=== PATIENT | female | born 1975 | race African-American/Black ===

== ENCOUNTER 2016-10-12 20:48 | Emergency (ER) | payer MEDICAID, OTHER ==
--- NOTE | 2016-10-13 00:53 | ER Document Report ---
ED General - General Chief Complaint: Chest Pain Stated Complaint: CHEST PAIN Notes: Patient is a 41-year-old female who presents with complaints of any pain that goes up into her chest whenever she eats. Says it's been ongoing for several months. She was taking Zantac. Is not helping anymore and therefore has come to ER. Patient says that she is a last neck. Vaccinations. She says that the pain started again on her way to ER. When I asked her what she ate on the way she said that she ate a perez cheeseburger and fries from [employer]. She denies fevers. No vomiting. She says that sometimes she feels as if food does get stuck in her softest but then she's able to wash down liquids. No blood in her stool. No blood in emesis. No other complaints at this time. She takes no other medications other than Zantac and iron. TRAVEL OUTSIDE OF THE [place] IN LAST 30 DAYS: No - Related Data Allergies/Adverse Reactions: No Known Allergies Allergy (Verified 04/14/15 15:16) Past Medical History - Social History Smoking Status: Never Smoker Frequency of alcohol use: None Drug Abuse: None Family History: Reviewed & Not Pertinent Patient has suicidal ideation: No Patient has homicidal ideation: No - Past Medical History Cardiac Medical History: Denies: Hx Coronary Artery Disease, Hx Heart Attack, Hx Hypertension Pulmonary Medical History: Denies: Hx Asthma, Hx Bronchitis, Hx COPD, Hx Pneumonia Neurological Medical History: Denies: Hx Cerebrovascular Accident, Hx Seizures Renal/ Medical History: Denies: Hx Peritoneal Dialysis Musculoskeltal Medical History: Denies Hx Arthritis Psychiatric Medical History: Reports: Hx Anxiety, Hx Bipolar Disorder Past Surgical History: Reports: Hx Abdominal Surgery - hernia repair, Hx Oral Surgery - wisdom, Hx Tubal Ligation - Immunizations Hx Diphtheria, Pertussis, Tetanus Vaccination: No Review of Systems - Review of Systems Notes: My Normal Review Basic REVIEW OF SYSTEMS: CONSTITUTIONAL : Denies fever, chills, or sweats. Denies recent illness. EENT: Denies eye, ear, throat, or mouth pain or symptoms. Denies nasal or sinus congestion. CARDIOVASCULAR: Has chest pain. RESPIRATORY: Denies cough, cold, or chest congestion. Denies shortness of breath, difficulty breathing, or wheezing. GASTROINTESTINAL: Epigastric abdominal pain. Denies nausea, vomiting, or diarrhea. Denies constipation. Last BM: GENITOURINARY: Denies difficulty urinating, painful urination, burning, frequency, or blood in urine. MUSCULOSKELETAL: Denies neck or back pain or joint pain or swelling. SKIN: Denies rash or skin lesions. NEUROLOGICAL: Denies altered mental status or loss of consciousness. Denies headache. Denies weakness or paralysis or loss of use of either side. Denies problems with gait or speech. Denies sensory or motor loss. ALL OTHER SYSTEMS REVIEWED AND NEGATIVE. Physical Exam - Vital signs Vitals: Temp Pulse Resp BP Pulse Ox 98.8 F 82 18 126/77 H 98 10/12/16 21:19 10/12/16 21:19 10/12/16 21:19 10/12/16 21:19 10/12/16 21:19 - Notes Notes: General Appearance: Well nourished, alert, cooperative, no acute distress, no obvious discomfort. Well-appearing. Vitals: reviewed, See vital signs table. Head: no swelling or tenderness to the head Eyes: PERRL, EOMI, Conjuctiva clear Mouth: No decreasd moisture Neck: Supple, no neck tenderness, No thyromegaly Lungs: No wheezing, No rales, No rhonci, No accessory muscle use, good air exchange bilaterally. Heart: Normal rate, Regular rythm, No murmur, no rub Abdomen: Normal BS, soft, No rigidity, mild epigastric abdominal tenderness to palpation, No guarding, no rebound, no abdominal masses, no organomegaly Extremities: strength 5/5 in all extremities, good pulses in all extremities, no swelling or tenderness in the extremities, no edema. Skin: warm, dry, appropriate color, no rash Neuro: speech clear, oriented x 3, normal affect, responds appropriately to questions. Course - Vital Signs Vital signs: Temp Pulse Resp BP Pulse Ox 98.8 F 82 18 126/77 H 98 10/12/16 21:19 10/12/16 21:19 10/12/16 21:19 10/12/16 21:19 10/12/16 21:19 - Laboratory Result Diagrams: 10/13/16 01:12 10/13/16 01:12 Laboratory results interpreted by me: 10/13/16 10/13/16 01:12 01:12 Hgb 11.0 L Hct 33.7 L MCH 26.2 L RDW 15.6 H Chloride 108 H Carbon Dioxide 21 L Glucose 113 H - EKG Interpretation by Me Additional EKG results interpreted by me: 10/13/16 00:53 EKG is reviewed and interpreted by me. EKG shows normal sinus rhythm with rate of [address] segment elevation or depression. No ischemic T wave inversions. RI interval, QRS duration, QTC also are within normal range. Old EKG for comparison is from 03/11/2015. - Transfer of Care Notes: 10/13/16 02:58 Patient's history and symptoms are consistent with what appears be acid reflux and gastritis. She has been having some difficulty swallowing at times which suggest he may have a stricture. I did explain to her that she really needs to have an upper GI endoscopy performed. Her labs or evaluations unremarkable. Her EKG and cardiac enzymes are negative. I do not think the pain she has going into her chest is cardiac related. I informed her she must return to ER immediately if she has worsening pain or feels unwell. I did explain to her that her current diet is only making her symptoms worse. I strongly encourage her to eat a very bland diet and to avoid eating fried foods, fast foods, fatty foods, or acidic foods. Patient shows understanding of this and will be discharged home. Patient encouraged to return to ER immediately if she has worsening pain, any blood in her stool, vomiting, fevers, or food gets stuck in her esophagus and will not pass. Dictation of this chart was performed using voice recognition software; therefore, there may be some unintended grammatical errors. Discharge - Discharge Clinical Impression: Chest pain Qualifiers: Chest pain type: unspecified Qualified Code(s): R07.9 - Chest pain, unspecified Abdominal pain Qualifiers: Abdominal location: epigastric Qualified Code(s): R10.13 - Epigastric pain Additional Instructions: I provided information and office numbers to our 2 local gastrointestinal physicians. They are Dr. Locke and Dr. Moy. Please call to get an appointment as you probably will need an upper GI endoscopy to evaluate your stomach and esophagus. This is important because of your history of difficulty swallowing and pain after eating. please avoid fatty foods, fried foods, and acidic foods. please eat a very bland diet. Please take Zantac as well as the medication I am prescribing you. Please return to the ER immediately if you have worsening pain, blood in your stool, fevers, get food stuck in your esophagus, or feel unwell. Prescriptions: Sucralfate [Carafate 1 gm Tablet] 1 gm PO ACHS #120 tablet Referrals: MACKENZIE LOCKE MD [ACTIVE STAFF] - Follow up in 3-5 days LIANNE MOY MD [ACTIVE STAFF] - Follow up in 3-5 days MICHAEL PÉREZ DO [Primary Care Provider] - Follow up in 3-5 days
[2016-10-13] MEDS ORDERED: METOCLOPRAMIDE HCL ORAL SOLN 10 MG/10 ML UDCUP PO ONE (01:04)
[2016-10-13] MEDS ORDERED: LIDOCAINE 2% VISCOUS SOLN 20 ML UDCUP PO ONE (01:04)
[2016-10-13] MEDS ORDERED: MAG HYDROX/AL HYDROX/SIMETH SUSP 30 ML UDCUP PO ONE (01:04)
[2016-10-13 01:28] LABS: ABSOLUTE BASOPHILS # (AUTO) 0.1 10^3/uL (0.0-0.2); ABSOLUTE EOSINOPHILS # (AUTO) 0.2 10^3/uL (0.0-0.6); ABSOLUTE LYMPHOCYTES (AUTO) 2.5 10^3/uL (0.5-4.7); ABSOLUTE MONOCYTES (AUTO) 0.5 10^3/uL (0.1-1.4); ABSOLUTE NEUT (AUTO) 5.9 10^3/uL (1.7-8.2); BASOPHILS % (AUTO) 0.7 % (0-2); EOSINOPHILS % (AUTO) 1.9 % (0-6); HEMATOCRIT 33.7 % (36.0-47.0); HGB HCT DIFFERENCE -0.7; LYMPHOCYTES % (AUTO) 27.4 % (13-45); MEAN CORPUSCULAR HEMOGLOBIN 26.2 pg (27.0-33.4); MEAN CORPUSCULAR HGB CONC 32.5 g/dL (32.0-36.0); MEAN CORPUSCULAR VOLUME 81 fl (80-97); MONOCYTES % (AUTO) 5.1 % (3-13); RED BLOOD COUNT 4.19 10^6/uL (3.72-5.28); RED CELL DISTRIBUTION WIDTH 15.6 % (11.5-14.0); SEGMENTED NEUTROPHILS % (AUTO) 64.9 % (42-78); WHITE BLOOD COUNT 9.1 10^3/uL (4.0-10.5)
[2016-10-13 01:42] LABS: ALANINE AMINOTRANSFERASE 26 U/L (9-52); ALKALINE PHOSPHATASE 81 U/L (38-126); ANION GAP 13 (5-19); ASPARTATE AMINO TRANSFERASE 22 U/L (14-36); BILIRUBIN,DIRECT 0.2 mg/dL (0.0-0.4); BILIRUBIN,TOTAL 0.7 mg/dL (0.2-1.3); BLOOD UREA NITROGEN 13 mg/dL (7-20); CALCIUM 9.5 mg/dL (8.4-10.2); CARBON DIOXIDE 21 mmol/L (22-30); CHLORIDE 108 mmol/L (98-107); CREATININE RESULT 0.81 mg/dL (0.52-1.25); GLUCOSE 113 mg/dL (75-110); LIPASE 105.6 U/L (23-300); SODIUM 142.4 mmol/L (137-145); TOTAL PROTEIN 7.3 g/dL (6.3-8.2)
[2016-10-13 01:46] LABS: APPEARANCE,URINE CLEAR; BILIRUBIN,URINE NEGATIVE (NEGATIVE); GLUCOSE, URINE NEGATIVE (NEGATIVE); KETONES,URINE NEGATIVE (NEGATIVE); LEUKOCYTE ESTERASE,URINE NEGATIVE (NEGATIVE); NITRITE,URINE NEGATIVE (NEGATIVE); PROTEIN,URINE NEGATIVE (NEGATIVE); URINE SPECIFIC GRAVITY 1.012; UROBILINOGEN,URINE NEGATIVE mg/dL (<2.0)
[2016-10-13 03:46] VITALS: BP 108/73
--- NOTE | 2016-10-13 09:47 | EKG REPORT ---
SEVERITY:- NORMAL ECG - SINUS RHYTHM : Confirmed by: Ben Brown 13-Oct-2016 09:46:49
== END 2016-10-13 02:58 | disposition home or self-care (01) ==
LOC: ER 10-13 00:46
DX: R07.9 Chest pain, unspecified (principal); R10.13 Epigastric pain; Z79.899 Other long term (current) drug therapy
CPT/HCPCS: 93005; 99285; 36415; 83690; 85025; 80053; 81001; 84484; 71020; 93010; J3490

== ENCOUNTER 2016-10-24 10:16 | Day surgery (SDC) | payer OTHER ==
[~2016-10-24 10:16] MED LIST: DIPHENHYDRAMINE HCL 50 MG/ML VIAL ONE; EPINEPHRINE INJ 1 MG/10 ML DISP.SYRIN ONE; FLUMAZENIL INJ 0.5 MG/5 ML VIAL IV ONE; GLUCAGON,HUMAN RECOMB 1 MG INJ ONE; NALOXONE HCL INJ/PF 0.4 MG/1 ML SDV ONE; ONDANSETRON HCL INJ/PF 4 MG/2 ML SDV ONE
[2016-10-24] MEDS: MIDAZOLAM 2 MG/2 ML INJ ONE ×2 (10:55→10:59)
[2016-10-24] MEDS: FENTANYL CITRATE INJ/PF 100 MCG/2 ML AMPUL ONE ×2 (10:57→11:01)
--- NOTE | 2016-10-24 11:09 | Operative Report ---
Operative Report DATE OF SURGERY: 10/24/16 Operative Report: The risks benefits and alternatives of the procedure explained to the patient in detail and informed consent is obtained that GIF Olympus video scope was inserted into the patient's mouth and hypopharynx the esophagus is identified intubated and insufflated the scope was then advanced through the esophagus stomach and duodenum retroflexion maneuver is done the esophagus stomach and first and second portions of the duodenum examined PREOPERATIVE DIAGNOSIS: Noncardiac chest pain. Dysphagia. Gastroesophageal reflux disease POSTOPERATIVE DIAGNOSIS: Hiatal hernia. Schatzki's ring status post biopsy. Esophageal nodule status post biopsy. Gastritis status post biopsy OPERATION: EGD with biopsy SURGEON: MACKENZIE AGUILAR ANESTHESIA: Moderate Sedation - 4 mg of Versed, 100 g of fentanyl. Conscious sedation monitoring time 30 minutes. TISSUE REMOVED OR ALTERED: Specimens as described above. COMPLICATIONS: None. ESTIMATED BLOOD LOSS: none. INTRAOPERATIVE FINDINGS: Findings as noted above. PROCEDURE: Patient tolerated the procedure well. No immediate postprocedure complications are noted. Patient discharged in good condition. Discharge date 10/24/2016. Discharge diet: Regular. Discharge activity: Regular. 2-3 week follow-up to discuss findings. We'll await on biopsies. Patient is instructed to call the office or proceed to the emergency room should there be any further problems or questions.
[2016-10-24 12:21] VITALS: BP 111/70
== END 2016-10-24 12:14 | disposition home or self-care (01) ==
LOC: END 10:16
PROVIDERS: ATTEND Internal Medicine Gastroenterology
PROC: 0DB48ZX Excision of Esophagogastric Junction, Via Natural or Artificial Opening Endoscopic, Diagnostic (ICD-10-PCS; 2016-10-24)
PROC: 0DB68ZX Excision of Stomach, Via Natural or Artificial Opening Endoscopic, Diagnostic (ICD-10-PCS; principal; 2016-10-24 11:00)
DX: K29.50 Unspecified chronic gastritis without bleeding (principal); K21.0 Gastro-esophageal reflux disease with esophagitis; K44.9 Diaphragmatic hernia without obstruction or gangrene; K22.2 Esophageal obstruction; R07.89 Other chest pain; E78.5 Hyperlipidemia, unspecified; D64.9 Anemia, unspecified; F17.210 Nicotine dependence, cigarettes, uncomplicated; E66.9 Obesity, unspecified; Z68.33 Body mass index [BMI] 33.0-33.9, adult; Z79.899 Other long term (current) drug therapy; E55.9 Vitamin D deficiency, unspecified
CPT/HCPCS: 43239; 88305 ×2; J2250; J0171; J3010; J1200; J1610; J2310; J2405; J3490

== ENCOUNTER 2017-06-12 04:52 | Emergency (ER) | payer SELFPAY ==
--- NOTE | 2017-06-12 05:10 | ER Document Report ---
ED General - General Chief Complaint: Vaginal Bleeding Stated Complaint: VAGINAL BLEEDING Notes: Patient is a 41-year-old female presents with complaint of passing large clot during her menstrual cycle. Menstrual cycle started the 26. He says no more bleeding than what she is used to. She denies any recent sexual activity. She says it has been about a year. She has no concerns for sexual transmitted diseases or due to lack of sexual activity. She does have history of fibroids. She says she had an ultrasound many years ago which showed some fibroid tumors. She says she just wants to get checked because this is atypical for her to pass clots that she did today. Patient says her bleeding has slowed down since passing the clot. No recent fevers or infections. TRAVEL OUTSIDE OF THE [place] IN LAST 30 DAYS: No - Related Data Allergies/Adverse Reactions: No Known Allergies Allergy (Verified 10/24/16 10:36) Past Medical History - Social History Smoking Status: Unknown if Ever Smoked Frequency of alcohol use: None Drug Abuse: None Family History: Reviewed & Not Pertinent - Past Medical History Cardiac Medical History: Denies: Hx Coronary Artery Disease, Hx Heart Attack, Hx Hypertension Pulmonary Medical History: Denies: Hx Asthma, Hx Bronchitis, Hx COPD, Hx Pneumonia Neurological Medical History: Denies: Hx Cerebrovascular Accident, Hx Seizures Renal/ Medical History: Denies: Hx Peritoneal Dialysis Musculoskeltal Medical History: Denies Hx Arthritis Psychiatric Medical History: Reports: Hx Anxiety, Hx Bipolar Disorder Past Surgical History: Reports: Hx Abdominal Surgery - hernia repair, Hx Oral Surgery - wisdom, Hx Tubal Ligation. Denies: Hx Hysterectomy - Immunizations Hx Diphtheria, Pertussis, Tetanus Vaccination: No Review of Systems - Review of Systems Notes: My Normal Review Basic REVIEW OF SYSTEMS: CONSTITUTIONAL : Denies fever, chills, or sweats. Denies recent illness. GASTROINTESTINAL: Denies abdominal pain. Denies nausea, vomiting, or diarrhea. FEMALE GENITOURINARY: Normal vaginal bleeding. MUSCULOSKELETAL: Denies neck or back pain or joint pain or swelling. SKIN: Denies rash or skin lesions. NEUROLOGICAL: Denies altered mental status or loss of consciousness. Denies headache. Denies weakness or paralysis or loss of use of either side. Denies problems with gait or speech. Denies sensory or motor loss. ALL OTHER SYSTEMS REVIEWED AND NEGATIVE. Physical Exam - Vital signs Vitals: Temp Pulse Resp BP Pulse Ox 98.3 F 72 18 132/69 H 100 06/12/17 04:56 06/12/17 04:56 06/12/17 04:56 06/12/17 04:56 06/12/17 04:56 - Notes Notes: General Appearance: Well nourished, alert, cooperative, no acute distress, no obvious discomfort. Well appearing. Vitals: reviewed, See vital signs table. Abdomen: Normal BS, soft, No rigidity, No abdominal tenderness, No guarding, no rebound, Pelvic exam: Normal external genitalia. Small amount of blood in vaginal vault. No clots in cervical office. No obvious lesions in examination of the cervix. Neuro: speech clear, oriented x 3, normal affect, responds appropriately to questions. Course - Re-evaluation Re-evalutation: 06/12/17 06:56 Patient's ultrasound shows fibroids consistent with her history. She also has a small cystic type structure in the endometrium which could be from a fibroid. I informed her that nonetheless at this has to be evaluated with repeat ultrasounds to make sure that he continues to be there that there is not further workup needs to be done for. I informed her that it is unlikely be cancerous but still so is better today on the side of caution follow-up with her hog killer to have this reevaluated to be 100% sure. Patient agrees with this plan. She is encouraged to return to the ER immediately if she has heavy bleeding, severe pain, or feels unwell. Patient will be discharged home. Dictation of this chart was performed using voice recognition software; therefore, there may be some unintended grammatical errors. - Vital Signs Vital signs: Temp Pulse Resp BP Pulse Ox 98.3 F 72 18 132/69 H 100 06/12/17 04:56 06/12/17 04:56 06/12/17 04:56 06/12/17 04:56 06/12/17 04:56 Discharge - Discharge Clinical Impression: Abnormal vaginal bleeding Fibroids Qualifiers: Uterine leiomyoma location: unspecified location Qualified Code(s): D25.9 - Leiomyoma of uterus, unspecified Condition: Good Disposition: HOME, SELF-CARE Additional Instructions: You have multiple fibroids in your uterus on the ultrasound. These can lead to abnormal periods and heavier than normal bleeding. You also have a custice area in the endometrium that needs to be reevaluated by the Plate And Weld Inspector. This is likely to be noncancerous, but still requires reevaluaiton because if it is changing or continues to be seen on repeat ultrasounds it may eventually need a biopsy. Please follow up with the hog killer for reevaluation and to have your pap smear performed. Please return to the ER immediately if you have heavy bleeding, lightheadedness, fevers, or if you feel unwell. Referrals: OSVALDO RAMSEY MD [ACTIVE STAFF] - Follow up in 3-5 days
[2017-06-12 07:14] VITALS: BP 126/79
--- NOTE | 2017-06-12 07:38 | RADIOLOGY REPORT (SQ) ---
EXAM DESCRIPTION: U/S NON OB PEL TV W/DOPPLER CLINICAL HISTORY: 41 years Female, abnormal vaginal bleeding COMPARISON: 11/30/2014 TECHNIQUE: Complete nonobstetrical pelvic ultrasound with transvaginal and transabdominal imaging. FINDINGS: Uterus measures 14.6 x 12.3 x 10.8 cm. Small amount of fluid in the endometrium. 1.2 cm hyperechoic focus in the endometrium. Endometrial thickness of 1.0 cm. The cervix measures 3.9 cm. Within the uterine myometrium there are multiple heterogeneous structures compatible with fibroids. There is a 7.7 cm intramural fibroid involving the rightward aspect of the uterus. There is a 5.6 cm intramural fibroid involving the anterior uterine myometrium. The ovaries are not visualized due to overlying enlarged uterus. IMPRESSION: 1. Enlarged multi fibroid uterus. The largest fibroid measures 7.7 cm. 2. 1.2 cm hyperechoic focus in the endometrium. This could represent a polyp versus submucosal fibroid versus endometrial hyperplasia. 3. Small amount of fluid in the endometrium. 4. The ovaries are not enlarged.
== END 2017-06-12 07:14 | disposition home or self-care (01) ==
LOC: ER 04:52
DX: D25.1 Intramural leiomyoma of uterus (principal); N93.9 Abnormal uterine and vaginal bleeding, unspecified
CPT/HCPCS: 76830; 93976; 99284

== ENCOUNTER 2017-09-06 05:05 | Emergency (ER) | payer SELFPAY ==
--- NOTE | 2017-09-06 07:03 | ER Document Report ---
HPI - HPI Pain Level: Denies Context: 42-year-old female with a history of bipolar tried to lay down to go to sleep at 4:00 after watching movies and felt anxious with rapid heartbeat which is the typical symptom for her. She is taking anxiety medication in the past but not on a regular basis. There was a situation that she texted her mentor about in there are family members who are being nosy and bothering her about it. She is not suicidal or homicidal. No recent illness. Feels like she has it under control and that she can drive herself home and she would be fine, although she wants a few anxiety pills. Associated Symptoms: None Exacerbated by: Denies Relieved by: Other - See above Similar symptoms previously: Yes Recently seen / treated by doctor: No - ROS ROS below otherwise negative: Yes Systems Reviewed and Negative: Yes All other systems reviewed and negative - REPRODUCTIVE Reproductive: DENIES: : Past Medical History - General Information source: Patient - Social History Smoking Status: Never Smoker Chew tobacco use (# tins/day): No Frequency of alcohol use: None Drug Abuse: None Lives with: Alone Family History: Reviewed & Not Pertinent Patient has suicidal ideation: No Patient has homicidal ideation: No Renal/ Medical History: Denies: Hx Peritoneal Dialysis Psychiatric Medical History: Reports: Hx Anxiety, Hx Bipolar Disorder Past Surgical History: Reports: Hx Abdominal Surgery - hernia repair, Hx Oral Surgery - wisdom, Hx Tubal Ligation. Denies: Hx Hysterectomy - Immunizations Hx Diphtheria, Pertussis, Tetanus Vaccination: No Vertical Provider Document - CONSTITUTIONAL Agree With Documented VS: Yes Exam Limitations: No Limitations - INFECTION CONTROL TRAVEL OUTSIDE OF THE [place] IN LAST 30 DAYS: No - HEENT HEENT: Normal ENT Exam, Normocephalic - NECK Neck: Supple, Thyroid Normal. negative: Lymphadenopathy-Left, Lymphadenopathy- Right - RESPIRATORY Respiratory: Breath Sounds Normal, No Respiratory Distress - CARDIOVASCULAR Cardiovascular: Regular Rate, Regular Rhythm - MUSCULOSKELETAL/EXTREMETIES Musculoskeletal/Extremeties: MAEW - NEURO Level of Consciousness: Awake, Alert, Appropriate - DERM Integumentary: Warm, Dry Course - Vital Signs Vital signs: Temp Pulse Resp BP Pulse Ox 97.9 F 69 22 H 124/95 H 98 09/06/17 05:18 09/06/17 05:18 09/06/17 05:18 09/06/17 05:18 09/06/17 05:18 Discharge - Discharge Clinical Impression: Anxiety Condition: Good Disposition: HOME, SELF-CARE Instructions: Anxiety ([facility]) Additional Instructions: see your neuropsych doctor for followup to er any concerns Prescriptions: Hydroxyzine HCl 50 mg PO QIDP PRN #30 tablet PRN Reason:
[2017-09-06 07:30] VITALS: BP 131/82
== END 2017-09-06 07:29 | disposition home or self-care (01) ==
LOC: ER 05:05
DX: F41.9 Anxiety disorder, unspecified (principal); Z98.51 Tubal ligation status
CPT/HCPCS: 99283

== ENCOUNTER 2017-10-07 17:18 | Emergency (ER) | payer BC ==
--- NOTE | 2017-10-07 18:40 | ER Document Report ---
ED General - General Chief Complaint: Neck Swelling Stated Complaint: SORE THROAT Time Seen by Provider: 10/07/17 18:40 Mode of Arrival: Ambulatory Information source: Patient TRAVEL OUTSIDE OF THE [place] IN LAST 30 DAYS: No - HPI Notes: 42-year-old female presents today with complaints of right neck swelling, difficulty opening mouth, pain with swallowing 1 week. Reports vaccinations are up-to-date. Pain is 8 out of 10, achy and sharp. Denies any new travel, medications or foods. Decreased eating but is drinking. Has not tried any over -the-counter medications. Denies fevers, chills, chest pain,palpitations, shortness of breath, dyspnea, nausea, vomiting, diarrhea, abdominal pain, hematuria,blurred vision, double vision, loss of vision, speech changes, LH, dizziness, syncope, headaches, wheezing, ST, URI, neck pain, weakness, bowel or bladder dysfunction, saddle anesthesia, numbness or tingling in bilateral upper or lower extremities equally, muscle paralysis, weakness in bilateral upper or lower extremities equally or rash. Denies IV drug use. - Related Data Allergies/Adverse Reactions: No Known Allergies Allergy (Verified 10/24/16 10:36) Past Medical History - General Information source: Patient - Social History Smoking Status: Unknown if Ever Smoked Family History: Reviewed & Not Pertinent - Past Medical History Cardiac Medical History: Denies: Hx Coronary Artery Disease, Hx Heart Attack, Hx Hypertension Pulmonary Medical History: Denies: Hx Asthma, Hx Bronchitis, Hx COPD, Hx Pneumonia Neurological Medical History: Denies: Hx Cerebrovascular Accident, Hx Seizures Renal/ Medical History: Denies: Hx Peritoneal Dialysis Musculoskeltal Medical History: Denies Hx Arthritis Psychiatric Medical History: Reports: Hx Anxiety, Hx Bipolar Disorder Past Surgical History: Reports: Hx Abdominal Surgery - hernia repair, Hx Oral Surgery - wisdom, Hx Tubal Ligation. Denies: Hx Hysterectomy - Immunizations Hx Diphtheria, Pertussis, Tetanus Vaccination: No Review of Systems - Review of Systems Constitutional: No symptoms reported EENT: See HPI Cardiovascular: No symptoms reported Respiratory: No symptoms reported Gastrointestinal: No symptoms reported Genitourinary: No symptoms reported Female Genitourinary: No symptoms reported Musculoskeletal: No symptoms reported Skin: No symptoms reported Hematologic/Lymphatic: No symptoms reported Neurological/Psychological: No symptoms reported Physical Exam - Vital signs Vitals: Temp Pulse Resp BP Pulse Ox 98.1 F 74 18 129/93 H 98 10/07/17 17:57 10/07/17 17:57 10/07/17 17:57 10/07/17 17:57 10/07/17 17:57 - Notes Notes: PHYSICAL EXAMINATION: GENERAL: Well-appearing, well-nourished and in no acute distress. HEAD: Atraumatic, normocephalic. EYES: Pupils equal round and reactive to light, extraocular movements intact, conjunctiva are normal. ENT: Nares patent, oropharynx clear without exudates. Moist mucous membranes. NECK: Normal range of motion, supple without lymphadenopathy. Noted lymphadenopathy with enlarged. Negative spurlings test. Social Sciences Research Scientist + 2 bilaterally and equally. Dtr +2~ bilaterally and equally in BUE. Perrla, full eomi. Face symmetrical. Full APROM no rashes observed. No lymphadenopathy. Full APROM with shoulders. TM intact bilaterally. No meningismus. LUNGS: Breath sounds clear to auscultation bilaterally and equal. No wheezes rales or rhonchi. HEART: Regular rate and rhythm without murmurs ABDOMEN: Soft, nontender, nondistended abdomen. No guarding, no rebound. No masses appreciated. Female : deferred Musculoskeletal: Normal range of motion, no pitting or edema. No cyanosis. NEUROLOGICAL: Cranial nerves grossly intact. Normal speech, normal gait. Normal sensory, motor exams PSYCH: Normal mood, normal affect. SKIN: Warm, Dry, normal turgor, no rashes or lesions noted. Course - Re-evaluation Re-evalutation: 10/07/17 19:09 on re evaluation, pt states that she is feeling better. CBC shows slight leukocytosis with neutrophils. CBC CMP lactate ct neck with soft tissue neck 10/07/17 22:16 10/07/17 22:25 - Vital Signs Vital signs: Temp Pulse Resp BP Pulse Ox 98.1 F 74 18 129/93 H 98 10/07/17 17:57 10/07/17 17:57 10/07/17 17:57 10/07/17 17:57 10/07/17 17:57 - Laboratory Result Diagrams: 10/07/17 20:00 10/07/17 20:32 Laboratory results interpreted by me: 10/07/17 20:00 WBC 14.6 H Hgb 10.6 L Hct 33.9 L MCV 73 L MCH 22.9 L MCHC 31.4 L RDW 28.4 H Absolute Neutrophils 10.7 H Discharge - Discharge Clinical Impression: Cervical lymphadenitis Condition: Good Disposition: HOME, SELF-CARE Instructions: Cervical Lymphadenitis ([facility]) Additional Instructions: Cervical Lymphadenitis You have an infection of the lymph glands in the neck. This is called lymphadenitis. Lymph glands guard against bacteria, but sometimes become infected themselves. The bacteria may come from a pimple or a scratch, from the gums, or from your tonsils. Sometimes it's not obvious where the germs came from. Occasionally a lymph gland infection will form an abscess that needs surgical drainage. The lump must be checked again if it keeps growing, or does not shrink down after treatment. We usually prescribe antibiotics for cervical lymphadenitis. Rest. Put warm packs on the area. Call the doctor or return if you develop increasing fever, worsening swelling, severe pain, or difficulty breathing or swallowing. Take antibiotics as directed, take prednisone as directed. Follow-up with doctor tomorrow. Return to the ER if signs and symptoms become worse. Return immediately for any new or worsening symptoms. Follow up with primary care provider, call tomorrow to make followup appointment. Forms: Return to Work, Return to School Referrals: TARA BOLANOS MD [ACTIVE STAFF] - Follow up tomorrow
[2017-10-07] MEDS ORDERED: KETOROLAC TROMETHAMINE INJ/PF 30 MG/1 ML SDV IV ONE (18:51)
[2017-10-07] MEDS: NORMAL SALINE 1000 ML 1,000 ML IV PRN ×2 (19:57→20:57)
[2017-10-07 20:18] LABS: ABSOLUTE BASOPHILS # (AUTO) 0.1 10^3/uL (0.0-0.2); ABSOLUTE EOSINOPHILS # (AUTO) 0.2 10^3/uL (0.0-0.6); ABSOLUTE MONOCYTES (AUTO) 0.6 10^3/uL (0.1-1.4); ABSOLUTE NEUT (AUTO) 10.7 10^3/uL (1.7-8.2); BASOPHILS % (AUTO) 0.7 % (0-2); EOSINOPHILS % (AUTO) 1.4 % (0-6); HEMATOCRIT 33.9 % (36.0-47.0); HEMOGLOBIN 10.6 g/dL (12.0-15.5); LYMPHOCYTES % (AUTO) 20.4 % (13-45); MEAN CORPUSCULAR HEMOGLOBIN 22.9 pg (27.0-33.4); MEAN CORPUSCULAR HGB CONC 31.4 g/dL (32.0-36.0); MEAN CORPUSCULAR VOLUME 73 fl (80-97); MONOCYTES % (AUTO) 4.4 % (3-13); PLATELET COUNT 362 10^3/uL (150-450); RED BLOOD COUNT 4.65 10^6/uL (3.72-5.28); RED CELL DISTRIBUTION WIDTH 28.4 % (11.5-14.0); SEGMENTED NEUTROPHILS % (AUTO) 73.1 % (42-78); TOTAL CELLS COUNTED % (AUTO) 100 %; WHITE BLOOD COUNT 14.6 10^3/uL (4.0-10.5)
[2017-10-07 20:47] LABS: ANISOCYTOSIS 4+; OVALOCYTES SLIGHT; PLATELET CLUMPS PRESENT; PLATELET COMMENT ADEQUATE; POIKILOCYTOSIS SLIGHT; SCHISTOCYTES SLIGHT
[2017-10-07] MEDS ORDERED: CEFEPIME 1 GM/D5W RTU 1 GM/50 ML RTUPB IV ONE (20:58)
--- NOTE | 2017-10-07 21:05 | RADIOLOGY REPORT (SQ) ---
EXAM DESCRIPTION: CT SOFT TISSUE NECK WITH COMPLETED DATE/TIME: 10/07/2017 8:55 pm REASON FOR STUDY: right neck swelling, diff swallow, +trismus COMPARISON: None. TECHNIQUE: Post IV contrasted scanning from skull base through lung apices with review of bone, soft tissue and lung windows. Reconstructed coronal and sagittal MPR images reviewed. All images stored on PACS. All CT scanners at this facility use dose modulation, iterative reconstruction, and/or weight based d osing when appropriate to reduce radiation dose to as low as reasonably achievable (ALARA). [facility]: Dose Right [facility]: CareDose [facility]: Dose Right [facility]: Teradose 4D [facility]: Parudi CONTRAST TYPE AND DOSE: contrast/concentration: Isovue 370.00 mg/ml; Total Contrast Delivered: 75.0 ml; Total Saline Delivered: 50.0 ml RENAL FUNCTION: None required. The patient is less than 50 years old. RADIATION DOSE: CT Rad equipment meets quality standard of care and radiation dose reduction techniq ues were employed. CTDIvol: 15.5 mGy. DLP: 504 mGy-cm. . LIMITATIONS: None. FINDINGS: SKULL BASE: Intact. MAJOR SALIVARY GLANDS: No solid or cystic masses. No inflammatory changes. LYMPHADENOPATHY: No adenopathy. MUCOSAL MASSES OR ASYMMETRY: No mucosal masses or asymmetry. LARYNX/CORDS: No abnormal findings. VASCULAR STRUCTURES: The major vessels are patent. LUNG APICES: Clear. BONES: Reversal the normal cervical lordotic curve. THYROID: Normal size. No masses. PARANASAL SINUSES: Clear. OTHER: No other significant finding. IMPRESSION: NO SIGNIFICANT FINDING IN THE SOFT TISSUES OF THE NECK. TECHNICAL DOCUMENTATION: JOB ID: [id number] Quality ID # [id number]: Final reports with documentation of one or more dose reduction techniques (e.g., Au tomated exposure control, adjustment of the mA and/or kV according to patient size, use of iterative reconstruction technique) 2010 [employer]- All Rights Reserved Reading location - IP/workstation name: [email or web address]
[2017-10-07 21:06] LABS: ALANINE AMINOTRANSFERASE 17 U/L (9-52); ALKALINE PHOSPHATASE 69 U/L (38-126); ANION GAP 13 (5-19); ASPARTATE AMINO TRANSFERASE 29 U/L (14-36); BILIRUBIN,DIRECT 0.3 mg/dL (0.0-0.4); BILIRUBIN,TOTAL 0.3 mg/dL (0.2-1.3); BLOOD UREA NITROGEN 10 mg/dL (7-20); CALCIUM 9.1 mg/dL (8.4-10.2); CARBON DIOXIDE 23 mmol/L (22-30); CHLORIDE 107 mmol/L (98-107); GLUCOSE 93 mg/dL (75-110); POTASSIUM 3.9 mmol/L (3.6-5.0); SODIUM 142.6 mmol/L (137-145); TOTAL PROTEIN 7.2 g/dL (6.3-8.2)
[2017-10-07] MEDS ORDERED: DEXAMETHASONE SOD PHOS INJ 10 MG/1 ML VIAL IV ONE (21:24)
[2017-10-07 23:28] VITALS: BP 108/60
== END 2017-10-07 23:39 | disposition home or self-care (01) ==
LOC: ER 17:18
DX: I88.9 Nonspecific lymphadenitis, unspecified (principal); D72.828 Other elevated white blood cell count
CPT/HCPCS: 99284; 96361; 96375; 96365; 36415; 87070; 87880; 85025; 86308; 86735; 80053; 83605; 70491; J1885; J7030; J1100; J0692

== ENCOUNTER → 2018-07-31 | Outpatient (CLI) | payer OTHER ==
[2018-07-31 08:36] LABS: ABSOLUTE BASOPHILS # (AUTO) 0.1 10^3/uL (0.0-0.2); ABSOLUTE EOSINOPHILS # (AUTO) 0.1 10^3/uL (0.0-0.6); ABSOLUTE LYMPHOCYTES (AUTO) 1.4 10^3/uL (0.5-4.7); ABSOLUTE MONOCYTES (AUTO) 0.2 10^3/uL (0.1-1.4); ABSOLUTE NEUT (AUTO) 5.1 10^3/uL (1.7-8.2); BASOPHILS % (AUTO) 1.1 % (0-2); EOSINOPHILS % (AUTO) 1.8 % (0-6); HEMATOCRIT 31.4 % (36.0-47.0); HEMOGLOBIN 10.1 g/dL (12.0-15.5); LYMPHOCYTES % (AUTO) 20.5 % (13-45); MEAN CORPUSCULAR HGB CONC 32.3 g/dL (32.0-36.0); MEAN CORPUSCULAR VOLUME 84 fl (80-97); MONOCYTES % (AUTO) 3.5 % (3-13); PLATELET COUNT 369 10^3/uL (150-450); RED BLOOD COUNT 3.76 10^6/uL (3.72-5.28); RED CELL DISTRIBUTION WIDTH 15.1 % (11.5-14.0); SEGMENTED NEUTROPHILS % (AUTO) 73.1 % (42-78); TOTAL CELLS COUNTED % (AUTO) 100 %
[2018-07-31 08:58] LABS: ALANINE AMINOTRANSFERASE 15 U/L (9-52); ALBUMIN 3.8 g/dL (3.5-5.0); ALKALINE PHOSPHATASE 67 U/L (38-126); ANION GAP 6 (5-19); ASPARTATE AMINO TRANSFERASE 17 U/L (14-36); BILIRUBIN,DIRECT 0.2 mg/dL (0.0-0.4); BILIRUBIN,TOTAL 0.3 mg/dL (0.2-1.3); BLOOD UREA NITROGEN 16 mg/dL (7-20); CALCIUM 9.1 mg/dL (8.4-10.2); CARBON DIOXIDE 27 mmol/L (22-30); CHLORIDE 110 mmol/L (98-107); CHOLESTEROL 156.17 mg/dL (0-200); GLUCOSE 99 mg/dL (75-110); POTASSIUM 3.9 mmol/L (3.6-5.0); SODIUM 143.1 mmol/L (137-145); TOTAL PROTEIN 6.5 g/dL (6.3-8.2); TRIGLYCERIDES 190 mg/dL (<150)
[2018-07-31 09:09] LABS: DIRECT LDL 85 mg/dL (<100)
== END ==
LOC: OD 07:35
DX: F31.9 Bipolar disorder, unspecified (principal)
CPT/HCPCS: 36415; 80053; 80061; 83036; 84443; 85025

== ENCOUNTER → 2018-08-13 | Outpatient (CLI) | payer OTHER ==
[2018-08-13 12:59] LABS: IRON(TIBC) 12.8 ug/dL (37-170)
[2018-08-13 13:35] LABS: FERRITIN 6.25 ng/mL (6.2-137.0)
== END ==
LOC: CCC 11:46
DX: D64.9 Anemia, unspecified (principal)
CPT/HCPCS: 36415; 82607; 82728; 82746; 83540; 83550

== ENCOUNTER → 2018-09-24 | Outpatient (CLI) | payer OTHER ==
[2018-09-24 16:06] LABS: ABSOLUTE BASOPHILS # (AUTO) 0.1 10^3/uL (0.0-0.2); ABSOLUTE EOSINOPHILS # (AUTO) 0.1 10^3/uL (0.0-0.6); ABSOLUTE MONOCYTES (AUTO) 0.4 10^3/uL (0.1-1.4); ABSOLUTE NEUT (AUTO) 5.6 10^3/uL (1.7-8.2); EOSINOPHILS % (AUTO) 1.7 % (0-6); HEMATOCRIT 32.9 % (36.0-47.0); HEMOGLOBIN 10.8 g/dL (12.0-15.5); LYMPHOCYTES % (AUTO) 24.3 % (13-45); MEAN CORPUSCULAR HEMOGLOBIN 27.1 pg (27.0-33.4); MEAN CORPUSCULAR HGB CONC 32.8 g/dL (32.0-36.0); MEAN CORPUSCULAR VOLUME 83 fl (80-97); MONOCYTES % (AUTO) 4.9 % (3-13); PLATELET COUNT 412 10^3/uL (150-450); RED BLOOD COUNT 3.99 10^6/uL (3.72-5.28); RED CELL DISTRIBUTION WIDTH 16.7 % (11.5-14.0); SEGMENTED NEUTROPHILS % (AUTO) 68.1 % (42-78); TOTAL CELLS COUNTED % (AUTO) 100 %; WHITE BLOOD COUNT 8.3 10^3/uL (4.0-10.5)
== END ==
LOC: CCC 15:24
DX: D64.9 Anemia, unspecified (principal)
CPT/HCPCS: 36415; 85025

== ENCOUNTER → 2018-11-12 | Outpatient (CLI) | payer OTHER ==
[2018-11-12 15:39] LABS: ABSOLUTE EOSINOPHILS # (AUTO) 0.1 10^3/uL (0.0-0.6); ABSOLUTE LYMPHOCYTES (AUTO) 2.1 10^3/uL (0.5-4.7); ABSOLUTE MONOCYTES (AUTO) 0.5 10^3/uL (0.1-1.4); ABSOLUTE NEUT (AUTO) 5.3 10^3/uL (1.7-8.2); BASOPHILS % (AUTO) 0.6 % (0-2); EOSINOPHILS % (AUTO) 0.7 % (0-6); HEMATOCRIT 37.7 % (36.0-47.0); HEMOGLOBIN 12.3 g/dL (12.0-15.5); LYMPHOCYTES % (AUTO) 26.1 % (13-45); MEAN CORPUSCULAR HEMOGLOBIN 26.8 pg (27.0-33.4); MEAN CORPUSCULAR HGB CONC 32.6 g/dL (32.0-36.0); MEAN CORPUSCULAR VOLUME 82 fl (80-97); MONOCYTES % (AUTO) 6.6 % (3-13); PLATELET COUNT 305 10^3/uL (150-450); RED BLOOD COUNT 4.59 10^6/uL (3.72-5.28); RED CELL DISTRIBUTION WIDTH 16.6 % (11.5-14.0); TOTAL CELLS COUNTED % (AUTO) 100 %
== END ==
LOC: CCC 15:01
DX: D50.9 Iron deficiency anemia, unspecified (principal)
CPT/HCPCS: 36415; 85025

== ENCOUNTER 2018-12-24 05:00 | Emergency (ER) | payer SELFPAY ==
[2018-12-24 08:08] LABS: APPEARANCE,URINE CLEAR; BILIRUBIN,URINE NEGATIVE (NEGATIVE); COLOR,URINE YELLOW; GLUCOSE, URINE NEGATIVE (NEGATIVE); KETONES,URINE NEGATIVE (NEGATIVE); LEUKOCYTE ESTERASE,URINE NEGATIVE (NEGATIVE); NITRITE,URINE NEGATIVE (NEGATIVE); PROTEIN,URINE NEGATIVE (NEGATIVE); URINE SPECIFIC GRAVITY 1.014; UROBILINOGEN,URINE NEGATIVE mg/dL (<2.0)
[2018-12-24] MEDS ORDERED: OXYCODONE-ACETAMINOPHEN 5-325 MG TABLET PO ONE (08:17)
[2018-12-24] MEDS ORDERED: ONDANSETRON 4 MG TAB.RAPDIS PO ONE (08:17)
[2018-12-24] MEDS ORDERED: KETOROLAC TROMETHAMINE 60 MG/2 ML SDV IM ONE (08:17)
[2018-12-24 08:19] LABS: ABSOLUTE EOSINOPHILS # (AUTO) 0.1 10^3/uL (0.0-0.6); ABSOLUTE LYMPHOCYTES (AUTO) 1.4 10^3/uL (0.5-4.7); ABSOLUTE MONOCYTES (AUTO) 0.4 10^3/uL (0.1-1.4); ABSOLUTE NEUT (AUTO) 7.6 10^3/uL (1.7-8.2); BASOPHILS % (AUTO) 0.4 % (0-2); EOSINOPHILS % (AUTO) 0.8 % (0-6); HEMATOCRIT 39.2 % (36.0-47.0); HEMOGLOBIN 12.8 g/dL (12.0-15.5); LYMPHOCYTES % (AUTO) 15.2 % (13-45); MEAN CORPUSCULAR HEMOGLOBIN 27.3 pg (27.0-33.4); MEAN CORPUSCULAR HGB CONC 32.6 g/dL (32.0-36.0); MEAN CORPUSCULAR VOLUME 84 fl (80-97); MONOCYTES % (AUTO) 3.8 % (3-13); PLATELET COUNT 360 10^3/uL (150-450); RED BLOOD COUNT 4.67 10^6/uL (3.72-5.28); RED CELL DISTRIBUTION WIDTH 15.8 % (11.5-14.0); SEGMENTED NEUTROPHILS % (AUTO) 79.8 % (42-78); TOTAL CELLS COUNTED % (AUTO) 100 %; WHITE BLOOD COUNT 9.5 10^3/uL (4.0-10.5)
[2018-12-24 08:24] LABS: ALANINE AMINOTRANSFERASE 26 U/L (9-52); ALKALINE PHOSPHATASE 75 U/L (38-126); ANION GAP 7 (5-19); ASPARTATE AMINO TRANSFERASE 23 U/L (14-36); BILIRUBIN,DIRECT 0.2 mg/dL (0.0-0.4); BILIRUBIN,TOTAL 0.5 mg/dL (0.2-1.3); BLOOD UREA NITROGEN 13 mg/dL (7-20); CALCIUM 9.5 mg/dL (8.4-10.2); CARBON DIOXIDE 26 mmol/L (22-30); CHLORIDE 108 mmol/L (98-107); GLUCOSE 85 mg/dL (75-110); LIPASE 40.3 U/L (23-300); POTASSIUM 4.2 mmol/L (3.6-5.0); TOTAL PROTEIN 7.2 g/dL (6.3-8.2)
--- NOTE | 2018-12-24 08:34 | ER Document Report ---
ED General - General Chief Complaint: Abdominal Pain Stated Complaint: MESTRUAL PAIN Time Seen by Provider: 12/24/18 08:06 Primary Care Provider: MICHAEL PÉREZ DO [Primary Care Provider] - Follow up as needed Mode of Arrival: Ambulatory Information source: Patient, [facility] Records Notes: 43-year-old female with history of fibroids, bipolar disorder, reflux presents with abdominal cramping that started 5 days prior to arrival. Patient began menstruating 5 days ago and reports heavy vaginal bleeding which is common for her. She was recently placed on control to help control the bleeding but states she is never had such significant cramping. Patient denies any previous vaginal discharge prior to the start of her cycle. Patient has taken pack Pamprin without relief. Patient denies fever, chills, vomiting, diarrhea, back pain. She is not currently sexually active has no concern for STD. TRAVEL OUTSIDE OF THE [place] IN LAST 30 DAYS: No - HPI Onset: Last week Onset/Duration: Gradual, Persistent Quality of pain: Cramping Severity: Moderate Associated symptoms: Nausea. denies: Chest pain, Diarrhea, Fever, Headache, Vomiting, Shortness of breath Exacerbated by: Denies Relieved by: Denies Similar symptoms previously: Yes Recently seen / treated by doctor: Yes - Related Data Allergies/Adverse Reactions: No Known Allergies Allergy (Verified 12/24/18 05:03) Past Medical History - General Information source: Patient - Social History Smoking Status: Never Smoker Frequency of alcohol use: None Drug Abuse: None Lives with: Family Family History: Reviewed & Not Pertinent - Past Medical History Cardiac Medical History: Denies: Hx Coronary Artery Disease, Hx Heart Attack, Hx Hypertension Pulmonary Medical History: Denies: Hx Asthma, Hx Bronchitis, Hx COPD, Hx Pneumonia Neurological Medical History: Denies: Hx Cerebrovascular Accident, Hx Seizures Renal/ Medical History: Denies: Hx Peritoneal Dialysis GI Medical History: Reports: Hx Gastroesophageal Reflux Disease Musculoskeletal Medical History: Denies Hx Arthritis Psychiatric Medical History: Reports: Hx Anxiety, Hx Bipolar Disorder Past Surgical History: Reports: Hx Abdominal Surgery - hernia repair, Hx Oral Surgery - wisdom, Hx Tubal Ligation. Denies: Hx Hysterectomy - Immunizations Hx Diphtheria, Pertussis, Tetanus Vaccination: No Review of Systems - Review of Systems Notes: REVIEW OF SYSTEMS: CONSTITUTIONAL : Denies fever, chills, or sweats. Denies recent illness. Denies weight loss, recent hospitalizations. EENT: Denies visual changes, eye pain. Denies sore throat, oral lesions, difficulty swallowing. CARDIOVASCULAR: Denies chest pain. Denies palpitations. Denies lower extremity edema. RESPIRATORY: Denies cough. Denies shortness of breath, wheezing. GASTROINTESTINAL: Denies abdominal distention. Denies nausea, vomiting, or diarrhea. Denies blood in vomitus, stools, or per rectum. Denies black, tarry stools. Denies constipation. GENITOURINARY: Denies difficulty urinating, painful urination, frequency, blood in urine, or vaginal discharge. MUSCULOSKELETAL: Denies back or neck pain or stiffness. Denies joint pain or swelling. SKIN: Denies rash, lesions or sores. HEMATOLOGIC : Denies easy bruising or bleeding. LYMPHATIC: Denies swollen glands. NEUROLOGICAL: Denies confusion or altered mental status. Denies loss of consciousness. Denies dizziness or lightheadedness. Denies headache. Denies weakness or paralysis. Denies problems difficulty with ambulation, slurred speech. Denies sensory loss, numbness, or tingling. Denies seizures. PSYCHIATRIC: Denies anxiety or stress. Denies depression, suicidal ideation, or homicidal ideation. Denies visual or auditory hallucinations. Physical Exam - Vital signs Vitals: Temp Pulse Resp BP Pulse Ox 98.3 F 68 20 143/79 H 98 12/24/18 05:04 12/24/18 05:04 12/24/18 05:04 12/24/18 05:04 12/24/18 05:04 - Notes Notes: PHYSICAL EXAMINATION: GENERAL: Well-appearing, well-nourished and in no acute distress. HEAD: Atraumatic, normocephalic. EYES: Pupils equal round and reactive to light, extraocular movements intact, conjunctiva are normal. ENT: Nares patent, oropharynx clear without exudates. Moist mucous membranes. NECK: Normal range of motion, supple without lymphadenopathy LUNGS: Breath sounds clear to auscultation bilaterally and equal. No wheezes rales or rhonchi. HEART: Regular rate and rhythm without murmurs ABDOMEN: Soft, nontender, nondistended abdomen. No guarding, no rebound. No masses appreciated. Female : Pelvic exam; External genitalia unremarkable. Speculum exam with blood. Vaginal wall unremarkable. Os closed. No cervical motion tenderness. No adnexal tenderness or masses appreciated. Swabs obtained for gonorrhea, chlamydia and wet prep. Musculoskeletal: Normal range of motion, no pitting or edema. No cyanosis. NEUROLOGICAL: Cranial nerves grossly intact. Normal speech, normal gait. Normal sensory, motor exams PSYCH: Normal mood, normal affect. SKIN: Warm, Dry, normal turgor, no rashes or lesions noted. Course - Re-evaluation Re-evalutation: 12/24/18 11:15 Laboratory 12/24/18 12/24/18 12/24/18 07:30 07:30 08:00 WBC 9.5 RBC 4.67 Hgb 12.8 Hct 39.2 MCV 84 MCH 27.3 MCHC 32.6 RDW 15.8 H Plt Count 360 Seg Neutrophils % 79.8 H Lymphocytes % 15.2 Monocytes % 3.8 Eosinophils % 0.8 Basophils % 0.4 Absolute Neutrophils 7.6 Absolute Lymphocytes 1.4 Absolute Monocytes 0.4 Absolute Eosinophils 0.1 Absolute Basophils 0.0 Sodium Potassium Chloride Carbon Dioxide Anion Gap BUN Creatinine Est GFR ( Amer) Est GFR (Non-Af Amer) Glucose Calcium Total Bilirubin Direct Bilirubin Neonat Total Bilirubin Neonat Direct Bilirubin Neonat Indirect Bili AST ALT Alkaline Phosphatase Total Protein Albumin Lipase Urine Color YELLOW Urine Appearance CLEAR Urine pH 5.0 Ur Specific [place]ao 1.014 Urine Protein NEGATIVE Urine Glucose (UA) NEGATIVE Urine Ketones NEGATIVE Urine Blood LARGE H Urine Nitrite NEGATIVE Urine Bilirubin NEGATIVE Urine Urobilinogen NEGATIVE Ur Leukocyte Esterase NEGATIVE Urine WBC (Auto) 1 Urine RBC (Auto) 10 Squamous Epi Cells Auto <1 Urine Mucus (Auto) RARE Urine Ascorbic Acid NEGATIVE Urine HCG, Qual NEGATIVE 12/24/18 08:00 WBC RBC Hgb Hct MCV MCH MCHC RDW Plt Count Seg Neutrophils % Lymphocytes % Monocytes % Eosinophils % Basophils % Absolute Neutrophils Absolute Lymphocytes Absolute Monocytes Absolute Eosinophils Absolute Basophils Sodium 141.0 Potassium 4.2 Chloride 108 H Carbon Dioxide 26 Anion Gap 7 BUN 13 Creatinine 0.86 Est GFR ( Amer) > 60 Est GFR (Non-Af Amer) > 60 Glucose 85 Calcium 9.5 Total Bilirubin 0.5 Direct Bilirubin 0.2 Neonat Total Bilirubin Not Reportable Neonat Direct Bilirubin Not Reportable Neonat Indirect Bili Not Reportable AST 23 ALT 26 Alkaline Phosphatase 75 Total Protein 7.2 Albumin 4.0 Lipase 40.3 Urine Color Urine Appearance Urine pH Ur Specific [place]ao Urine Protein Urine Glucose (UA) Urine Ketones Urine Blood Urine Nitrite Urine Bilirubin Urine Urobilinogen Ur Leukocyte Esterase Urine WBC (Auto) Urine RBC (Auto) Squamous Epi Cells Auto Urine Mucus (Auto) Urine Ascorbic Acid Urine HCG, Qual Transvaginal US 12/24/18 08:17 IMPRESSION: 1. Enlarged leiomyomatous uterus, largest fibroid measures up to 8.2 cm. 2. Again seen is thickening of the endometrial stripe measuring up to 16 mm. Findings possibly represent follow-up, submucosal fibroid or endometrial hyper plasia. Nonemergent Gynecologic evaluation could be considered for further evaluation. 3. Unremarkable right ovary. Left ovary not visualized. Temp Pulse Resp BP Pulse Ox 98.1 F 68 16 117/69 96 12/24/18 09:52 12/24/18 09:52 12/24/18 09:52 12/24/18 09:52 12/24/18 09:52 43-year-old female presents with abdominal cramping. Patient has a history of fibroids, heavy vaginal bleeding and was recently placed on control for this. Vital signs reviewed and within normal limits. Patient does not appear toxic or dehydrated but does appear to be uncomfortable. CBC is without leukocytosis or anemia. CMP shows no electrolyte abnormalities. Urinalysis does show blood but patient is currently menstruating. Patient did receive Toradol, [place] and Zofran and on reevaluation reports complete resolution of her nausea and cramping. Patient will be given a copy of her transvaginal ultrasound which showed an enlarged uterus and multiple large fibroids. Patient was evaluated and treated as appropriate for the patient's presenting symptoms and complaint, with consideration of any critical or life threatening conditions that may be associated with their obtained history and exam as noted above. All results were discussed with patient. Patient provided the opp ortunity to ask questions, and express concerns. Patient was educated on treatments based on their presumed diagnosis as noted above. At this time we will discharge the patient with return precautions and follow-up recommendations. Verbal discharge instructions given a the bedside. Medication warnings reviewed. Patient is in agreement with this plan and has verbalized understanding of return precautions. After careful consideration I feel that that patient can be safely discharged from the emergency department, they were advised to followup with a primary care physician in 2-3 days. Dictation on this chart was performed using voice recognition software and may result in unintended grammatical, spelling, syntax or errors. - Vital Signs Vital signs: Temp Pulse Resp BP Pulse Ox 98.1 F 68 16 117/69 96 12/24/18 09:52 12/24/18 09:52 12/24/18 09:52 12/24/18 09:52 12/24/18 09:52 - Laboratory Result Diagrams: 12/24/18 08:00 12/24/18 08:00 Laboratory results interpreted by me: 12/24/18 12/24/18 12/24/18 07:30 08:00 08:00 RDW 15.8 H Seg Neutrophils % 79.8 H Chloride 108 H Urine Blood LARGE H - Diagnostic Test Radiology reviewed: Image reviewed, Reports reviewed Discharge - Discharge Clinical Impression: Enlarged uterus, Fibroids, History of heavy vaginal bleeding, Abdominal cramping, Nausea Condition: Good Disposition: HOME, SELF-CARE Instructions: Abdominal Pain ([facility]), Dysfunctional Uterine Bleeding ([facility]) Additional Instructions: Follow up with your [id number] hours for further care or return to the ED IMMEDIATELY if symptoms worsen or you have any concerns. If you cannot afford to follow up with your primary care physician a list of low cost clinics have been provided at the end of your discharge papers as well. Most prescribed medications have multiple side effects. The safest thing to do is when filling your prescription speak to your pharmacist regarding possible interactions with your normal home medications and over the counter medications such as Ibuprofen, Tylenol, Benadryl. If you experience any symptoms that cause you discomfort or concern you should discontinue the medication immediately and return to the emergency room or call your primary care physician. Prescriptions: Hydrocodone/Acetaminophen [[place] 5-325 mg Tablet] 1 tab PO Q6H #10 tablet Naproxen [Naprosyn] 500 mg PO BID PRN #20 tablet PRN Reason: Abdominal Cramping Ondansetron [Zofran Odt 4 mg Tablet] 1 - 2 tab PO Q4H PRN #15 tab.rapdis PRN Reason: For Nausea/Vomiting Referrals: MICHAEL PÉREZ DO [Primary Care Provider] - Follow up as needed LAVON YADAV MD [ACTIVE STAFF] - Follow up in 3-5 days
--- NOTE | 2018-12-24 11:02 | RADIOLOGY REPORT (SQ) ---
EXAM DESCRIPTION: U/S NON OB PEL TV W/DOPPLER COMPLETED DATE/TIME: 12/24/2018 10:36 am REASON FOR STUDY: pelvic pain COMPARISON: 06/12/2017 TECHNIQUE: Dynamic and static grayscale images acquired of the pelvis via transvaginal approach and recorded on PACS. Additional selected color Doppler and spectral images recorded. LIMITATIONS: None. FINDINGS: UTERUS: The uterus is enlarged measuring 16.5 x 14.2 x 8.2 cm. There are multiple fibroid s throughout the uterus predominantly intramural. Largest fibroid measures 8.1 x 6.9 x 8.3 cm. ENDOMETRIAL STRIPE: Ill-defined endometrial stripe with again seen area of thickening measuring up to 16 mm. CERVIX: No nabothian cysts. RIGHT OVARY AND DOPPLER: Normal size measuring 3.9 x 2.6 x 2.8 cm. No worrisome masses. Normal arteri al vascular flow without evidence for torsion. LEFT OVARY AND DOPPLER: Ovary not visualized. FREE FLUID: None noted. OTHER: No other significant finding. IMPRESSION: 1. Enlarged leiomyomatous uterus, largest fibroid measures up to 8.2 cm. 2. Again seen is thickening of the endometrial stripe measuring up to 16 mm. Findings possibly repr esent follow-up, submucosal fibroid or endometrial hyperplasia. Nonemergent Gynecologic evaluation c ould be considered for further evaluation. 3. Unremarkable right ovary. Left ovary not visualized. TECHNICAL DOCUMENTATION: JOB ID: [id number] [employer]- All Rights Reserved Rev Reading location - IP/workstation name: [email or web address]
[2018-12-24 11:40] VITALS: BP 120/62
== END 2018-12-24 11:42 | disposition home or self-care (01) ==
LOC: ER 05:00
DX: N85.2 Hypertrophy of uterus (principal); D25.9 Leiomyoma of uterus, unspecified; R10.9 Unspecified abdominal pain; R11.0 Nausea; Z98.51 Tubal ligation status; Z79.3 Long term (current) use of hormonal contraceptives
CPT/HCPCS: 99284; 36415; 83690; 85025; 81025; 80053; 81001; 76830; 93976; J1885; S0119

== ENCOUNTER → 2019-03-26 | Outpatient (CLI) | payer OTHER ==
[2019-03-26 08:36] LABS: ABSOLUTE BASOPHILS # (AUTO) 0.1 10^3/uL (0.0-0.2); ABSOLUTE EOSINOPHILS # (AUTO) 0.1 10^3/uL (0.0-0.6); ABSOLUTE LYMPHOCYTES (AUTO) 1.5 10^3/uL (0.5-4.7); ABSOLUTE MONOCYTES (AUTO) 0.3 10^3/uL (0.1-1.4); ABSOLUTE NEUT (AUTO) 6.2 10^3/uL (1.7-8.2); BASOPHILS % (AUTO) 0.8 % (0-2); EOSINOPHILS % (AUTO) 0.6 % (0-6); HEMOGLOBIN 9.5 g/dL (12.0-15.5); LYMPHOCYTES % (AUTO) 18.8 % (13-45); MEAN CORPUSCULAR HEMOGLOBIN 25.7 pg (27.0-33.4); MEAN CORPUSCULAR HGB CONC 32.8 g/dL (32.0-36.0); MEAN CORPUSCULAR VOLUME 79 fl (80-97); MONOCYTES % (AUTO) 4.2 % (3-13); PLATELET COUNT 380 10^3/uL (150-450); RED CELL DISTRIBUTION WIDTH 14.3 % (11.5-14.0); SEGMENTED NEUTROPHILS % (AUTO) 75.6 % (42-78); TOTAL CELLS COUNTED % (AUTO) 100 %; WHITE BLOOD COUNT 8.2 10^3/uL (4.0-10.5)
== END ==
LOC: CCC 07:25
DX: D64.9 Anemia, unspecified (principal)
CPT/HCPCS: 36415; 85025

== ENCOUNTER → 2019-05-22 | Outpatient (CLI) | payer OTHER ==
[2019-05-22 16:22] LABS: ABSOLUTE BASOPHILS # (AUTO) 0.1 10^3/uL (0.0-0.2); ABSOLUTE EOSINOPHILS # (AUTO) 0.1 10^3/uL (0.0-0.6); ABSOLUTE LYMPHOCYTES (AUTO) 2.2 10^3/uL (0.5-4.7); ABSOLUTE MONOCYTES (AUTO) 0.4 10^3/uL (0.1-1.4); ABSOLUTE NEUT (AUTO) 3.7 10^3/uL (1.7-8.2); ABSOLUTE RETICS # 0.049 10^6/uL (0.028-0.122); BASOPHILS % (AUTO) 1.1 % (0-2); HEMATOCRIT 32.8 % (36.0-47.0); HEMOGLOBIN 10.8 g/dL (12.0-15.5); LYMPHOCYTES % (AUTO) 34.3 % (13-45); MEAN CORPUSCULAR HEMOGLOBIN 25.8 pg (27.0-33.4); MEAN CORPUSCULAR HGB CONC 32.8 g/dL (32.0-36.0); MEAN CORPUSCULAR VOLUME 79 fl (80-97); MONOCYTES % (AUTO) 5.8 % (3-13); PLATELET COUNT 351 10^3/uL (150-450); RED BLOOD COUNT 4.16 10^6/uL (3.72-5.28); RED CELL DISTRIBUTION WIDTH 18.1 % (11.5-14.0); RETICULOCYTE COUNT (AUTO) 1.17 % (0.66-2.85); SEGMENTED NEUTROPHILS % (AUTO) 57.8 % (42-78); TOTAL CELLS COUNTED % (AUTO) 100 %; WHITE BLOOD COUNT 6.5 10^3/uL (4.0-10.5)
[2019-05-22 16:41] LABS: IRON 143.6 ug/dL (37-170)
[2019-05-22 17:18] LABS: FERRITIN 9.09 ng/mL (6.2-137.0)
[2019-05-22 17:49] LABS: FOLATE 8.34 ng/mL (>2.76)
== END ==
LOC: CCC 15:07
DX: D64.9 Anemia, unspecified (principal)
CPT/HCPCS: 36415; 82607; 82728; 82746; 83540; 85025; 85045

== ENCOUNTER → 2019-08-27 | Outpatient (CLI) | payer OTHER ==
[2019-08-27 08:19] LABS: ABSOLUTE BASOPHILS # (AUTO) 0.1 10^3/uL (0.0-0.2); ABSOLUTE EOSINOPHILS # (AUTO) 0.1 10^3/uL (0.0-0.6); ABSOLUTE LYMPHOCYTES (AUTO) 1.5 10^3/uL (0.5-4.7); ABSOLUTE MONOCYTES (AUTO) 0.3 10^3/uL (0.1-1.4); ABSOLUTE NEUT (AUTO) 5.1 10^3/uL (1.7-8.2); BASOPHILS % (AUTO) 0.8 % (0-2); EOSINOPHILS % (AUTO) 0.8 % (0-6); HEMATOCRIT 33.9 % (36.0-47.0); HEMOGLOBIN 11.3 g/dL (12.0-15.5); LYMPHOCYTES % (AUTO) 21.3 % (13-45); MEAN CORPUSCULAR HEMOGLOBIN 27.4 pg (27.0-33.4); MEAN CORPUSCULAR HGB CONC 33.2 g/dL (32.0-36.0); MEAN CORPUSCULAR VOLUME 83 fl (80-97); MONOCYTES % (AUTO) 4.1 % (3-13); PLATELET COUNT 350 10^3/uL (150-450); RED BLOOD COUNT 4.11 10^6/uL (3.72-5.28); TOTAL CELLS COUNTED % (AUTO) 100 %
[2019-08-27 08:44] LABS: ALBUMIN 3.9 g/dL (3.5-5.0); ALKALINE PHOSPHATASE 86 U/L (38-126); ANION GAP 8 (5-19); ASPARTATE AMINO TRANSFERASE 18 U/L (14-36); BILIRUBIN,TOTAL 0.7 mg/dL (0.2-1.3); BLOOD UREA NITROGEN 13 mg/dL (7-20); CALCIUM 9.3 mg/dL (8.4-10.2); CARBON DIOXIDE 23 mmol/L (22-30); CHLORIDE 107 mmol/L (98-107); CHOLESTEROL 189.42 mg/dL (0-200); GLUCOSE 88 mg/dL (75-110); POTASSIUM 4.1 mmol/L (3.6-5.0); TRIGLYCERIDES 145 mg/dL (<150)
[2019-08-27 08:55] LABS: DIRECT LDL 107 mg/dL (<100)
== END ==
LOC: CCC 07:17
DX: Z00.00 Encounter for general adult medical examination without abnormal findings (principal)
CPT/HCPCS: 36415; 80053; 80061; 83036; 84443; 85025